=== PATIENT | female | born 1995 | race Caucasian/White ===

== ENCOUNTER 2018-11-21 08:23 | Outpatient (CLI) | payer MEDICAID | END 2018-11-21 11:24 | disposition home or self-care (01) | LOC: OBT 08:23 → L-D 08:27 → OBT 11:24 | DX: O28.9 Unspecified abnormal findings on antenatal screening of mother (principal); Z3A.40 40 weeks gestation of pregnancy | CPT/HCPCS: 76815; 76818 ==

== ENCOUNTER 2018-11-24 12:27 | Inpatient (IN) | payer MEDICAID ==
[2018-11-24] MEDS ORDERED: LIDOCAINE 1% (MPF) 30 ML INJ INJ (13:30)
[2018-11-24] MEDS ORDERED: CARBOPROST 250 MCG INJ IM ×2 (13:30→19:30)
[2018-11-24] MEDS ORDERED: METHYLERGONOVINE 0.2 MG INJ IM ×2 (13:30→19:30)
[2018-11-24] MEDS ORDERED: MISOPROSTOL 200 MCG TAB PR ×2 (13:30→19:30)
[2018-11-24] MEDS ORDERED: BUTORPHANOL 2 MG INJ IV ×2 (13:30)
[2018-11-24] MEDS ORDERED: OXYTOCIN 30 UNITS/LR 500 ML IV ×3 (13:30→19:30)
[2018-11-24] MEDS: LACTATED RINGER'S 1,000 ML IV ×3 (13:51→17:28)
[2018-11-24] MEDS ORDERED: FENTAnyl 50 MCG/ML VIAL (14:15)
[2018-11-24] MEDS ORDERED: FENTAnyl 2MCG/ML-ROPIV 0.2% 100 ML (14:15)
[2018-11-24 14:17] LABS: ADD MAN DIFF? NO
[2018-11-24 14:21] LABS: WHITE BLOOD COUNT 9.5 10^3/ul (4.8-10.8)
[2018-11-24 14:21] LABS: BASOPHILS % 0.4 % (0.0-2.0); EOSINOPHILS # 0.1 10^3/ul (0.0-0.5); EOSINOPHILS % 0.9 % (0.0-7.0); HEMATOCRIT 38.5 % (37.0-47.0); HEMOGLOBIN 12.3 g/dl (12.0-16.0); LYMPHOCYTES # 2.9 10^3/ul (0.8-2.9); LYMPHOCYTES % 30.3 % (15.0-51.0); MEAN CORPUSCULAR HEMOGLOBIN 26.6 pg (29.0-33.0); MEAN CORPUSCULAR HGB CONC 31.9 g/dl (32.0-37.0); MEAN CORPUSCULAR VOLUME 83.3 fl (82.0-101.0); MONOCYTE # 0.6 10^3/ul (0.3-0.9); MONOCYTES % 6.1 % (0.0-11.0); NEUTROPHIL # 5.9 10^3/ul (1.6-7.5); NEUTROPHILS % 61.8 % (39.0-77.0); PLATELET COUNT 112 10^3/UL (140-415); RED BLOOD COUNT 4.62 10^6/ul (4.20-5.40); RED CELL DISTRIBUTION WIDTH 15.7 % (11.5-14.5)
[2018-11-24] MEDS ORDERED: FENTAnyl 2MCG/ML-ROPIV 0.2% 100 ML BAG EPI (14:30)
[2018-11-24] MEDS ORDERED: NALOXONE (0.4 MG/ML) INJ IV (14:30)
[2018-11-24 14:39] LABS: INR 0.87; PROTIME 11.9 Sec (11.9-14.9); PT RATIO 0.9
[2018-11-24 14:40] LABS: PARTIAL THROMBOPLASTIN TIME 26.2 Sec (23.0-35.0)
[2018-11-24 14:57] LABS: RAPID PLASMA REAGIN NONREACTIVE (NR)
[2018-11-24] MEDS: OXYTOCIN 30 UNITS/LR 500 ML IV ×2 (19:25→23:01)
[2018-11-24] MEDS: LACTATED RINGER'S 1,000 ML IV* (19:25)
[2018-11-24] MEDS ORDERED: ONDANSETRON 4 MG INJ IV (19:30)
[2018-11-24] MEDS ORDERED: ACETAMINOPHEN 325 MG TAB PO ×2 (19:30)
[2018-11-24] MEDS ORDERED: MAGNESIUM HYDROXIDE 30ML CUP PO (19:30)
[2018-11-24] MEDS ORDERED: DIBUCAINE 1% 30 GM OINT TOP (19:30)
[2018-11-24] MEDS: CEFAZOLIN 2 GM/50 ML (PMX) 50 ML IVPB (19:51)
[2018-11-24] MEDS: WITCH HAZEL/GLYCERIN PAD PR (22:57)
[2018-11-24] MEDS: LANOLIN HPA 1 PKT TOP (22:57)
[2018-11-24] MEDS: DIPHENHYDRAMINE 50 MG INJ IV (22:57)
[2018-11-24] MEDS: BENZOCAINE 20% 56 ML SPRAY TOP (22:57)
[2018-11-25] MEDS: DIPHENHYDRAMINE 50 MG INJ IV (05:39)
[2018-11-25] MEDS: IBUPROFEN 600 MG TAB PO ×3 (05:39→23:36)
[2018-11-25 08:19] LABS: ADD MAN DIFF? NO
[2018-11-25 08:21] LABS: ABNORMAL IP MESSAGE 1; BASOPHILS % 0.3 % (0.0-2.0); EOSINOPHILS # 0.1 10^3/ul (0.0-0.5); EOSINOPHILS % 1.1 % (0.0-7.0); HEMATOCRIT 31.1 % (37.0-47.0); LYMPHOCYTES # 2.4 10^3/ul (0.8-2.9); LYMPHOCYTES % 23.8 % (15.0-51.0); MEAN CORPUSCULAR HEMOGLOBIN 27.1 pg (29.0-33.0); MEAN CORPUSCULAR HGB CONC 32.2 g/dl (32.0-37.0); MEAN CORPUSCULAR VOLUME 84.3 fl (82.0-101.0); MONOCYTE # 0.7 10^3/ul (0.3-0.9); MONOCYTES % 6.7 % (0.0-11.0); NEUTROPHIL # 6.9 10^3/ul (1.6-7.5); NEUTROPHILS % 67.7 % (39.0-77.0); PLATELET COUNT 83 10^3/UL (140-415); RED BLOOD COUNT 3.69 10^6/ul (4.20-5.40); RED CELL DISTRIBUTION WIDTH 15.5 % (11.5-14.5)
[2018-11-25 08:21] LABS: WHITE BLOOD COUNT 10.1 10^3/ul (4.8-10.8)
[2018-11-25 08:25] LABS: POSITIVE DIFF @See below
[2018-11-25] MEDS: BENZOCAINE 20% 56 ML SPRAY TOP (17:54)
[2018-11-25] MEDS: WITCH HAZEL/GLYCERIN PAD PR (17:54)
[2018-11-25] MEDS: SENNA/DOCUSATE NA (8.6MG/50MG) TAB PO (20:32)
[2018-11-26] MEDS: IBUPROFEN 600 MG TAB PO ×2 (05:37→12:14)
== END 2018-11-26 16:30 | disposition home or self-care (01) | DRG 807 ==
LOC: OBT 12:27 → L-D 12:27 → OBT 13:10 → L-D 13:10 → PP1 21:53
PROVIDERS: Obstetrics & Gynecology
PROC: 10E0XZZ Delivery of Products of Conception, External Approach (ICD-10-PCS; principal; 2018-11-24)
PROC: 0KQM0ZZ Repair Perineum Muscle, Open Approach (ICD-10-PCS; 2018-11-24)
DX: O70.1 Second degree perineal laceration during delivery (principal); Z37.0 Single live birth; Z3A.40 40 weeks gestation of pregnancy
CPT/HCPCS: 62322; 76815; 85025; 85610; 85730; 86592; 86850; 86900; 86901; 99464